=== PATIENT | male | born 1945 | race Caucasian/White ===

== ENCOUNTER 2021-10-09 20:28 | Observation (INO) | payer MEDICARE ==
[~2021-10-09] VITALS: Ht 170.2 cm; Wt 80.3 kg
[2021-10-09 21:02] LABS: HEMOGLOBIN 16.1 gm/dl (14.0-17.5); RED BLOOD COUNT 4.78 M/UL (4.20-5.50); WHITE BLOOD COUNT 9.4 K/UL (4.5-11.0)
[2021-10-09 21:23] LABS: BUN/CREATININE RATIO 14 (0-10)
[2021-10-10 08:52] LABS: BUN/CREATININE RATIO 14 (0-10)
[2021-10-10] MEDS ORDERED: OMEPRAZOLE20 MG PO (12:44)
[2021-10-10] MEDS ORDERED: AMLODIPINE BESYL5 MG PO (12:45)
[2021-10-10] MEDS ORDERED: HYDROCHLOROTHIA25 MG PO (12:46)
[2021-10-10] MEDS ORDERED: DAILY VITE1 EACH PO (12:47)
[2021-10-10] MEDS ORDERED: VIAGRA25 MG PO (12:49)
[2021-10-10] MEDS ORDERED: ASPIRIN EC81 MG PO (12:50)
[2021-10-10] MEDS ORDERED: PRESERVISION A1 EACH PO (12:50)
[2021-10-11 06:41] LABS: HEMOGLOBIN 14.6 gm/dl (14.0-17.5); RED BLOOD COUNT 4.4 M/UL (4.20-5.50); WHITE BLOOD COUNT 8.1 K/UL (4.5-11.0)
[2021-10-11 07:07] LABS: BUN/CREATININE RATIO 13 (0-10)
[2021-10-11] MEDS ORDERED: LIPITOR TAB 2020 MG PO (11:26)
== END 2021-10-11 12:48 | disposition home or self-care (01) ==
LOC: ER1 20:28 → MED SURG 4 22:50 → CDU 22:50 → MED SURG 4 10-10 17:29
PROVIDERS: Family Medicine; Internal Medicine; Nurse Practitioner; ADMIT Internal Medicine
DX: R20.2 Paresthesia of skin (principal); R26.2 Difficulty in walking, not elsewhere classified; R11.2 Nausea with vomiting, unspecified; R42 Dizziness and giddiness; I11.9 Hypertensive heart disease without heart failure; E78.5 Hyperlipidemia, unspecified; I65.22 Occlusion and stenosis of left carotid artery; F10.10 Alcohol abuse, uncomplicated; E87.6 Hypokalemia; K44.9 Diaphragmatic hernia without obstruction or gangrene; I72.5 Aneurysm of other precerebral arteries; Z79.899 Other long term (current) drug therapy; Z20.822 Contact with and (suspected) exposure to COVID-19
CPT/HCPCS: ECHO; 36415; 70450; 70496; 70498; 70551; 71275; 80048; 80053; 80061; 80076; 80307; 81001; 82140; 82550; 82553; 82607; 82746; 83036; 83605; 83735; 84100; 84439; 84443; 84484; 84550; 85025; 85027; 85379; 85610; 85730; 87040; 87086; 93005; 93306; 96361; 96372; 96374; 99285; G0378; G0480; J1650; J2405; J2550; J3480; Q9967; U0002